=== PATIENT | male | born 1980 | race Caucasian/White ===

== ENCOUNTER 2017-05-27 17:15 | Emergency (ER) | payer BC, OTHER ==
[~2017-05-27 17:15] MED LIST: ASPI325T PO; DILTCD120 PO; ROSU20 PO
[2017-05-27 17:36] VITALS: BP 152/93; PULSE 83; RESP 18; TEMP 98.1; O2SAT 98
--- NOTE | 2017-05-27 18:43 | RADRPT ---
EXAM DATE/TIME: 05/27/2017 18:23 [place] COMPARISON: No previous studies available for comparison. INDICATIONS : Chest pain. MEDICAL HISTORY : None. SURGICAL HISTORY : None. ENCOUNTER: Initial ACUITY: 2 days PAIN SCORE: 3/10 LOCATION: Bilateral chest FINDINGS: PA and lateral views of the chest demonstrate the lungs to be symmetrically aerated without evidence of mass, infiltrate or effusion. The cardiomediastinal contours are unremarkable. Osseous structure s are intact. CONCLUSION: No acute disease. Surya Guajardo MD on May 27, 2017 at 18:40 Board Certified Radiologist. This report was verified electronically.
[2017-05-27 19:23] LABS: AUTOMATED NEUTROPHIL # 4.1 TH/MM3 (1.8-7.7); BASOPHIL % 0.5 % (0.0-2.0); EOSINOPHIL # 0.1 TH/MM3 (0-0.4); EOSINOPHIL % 1.6 % (0.0-4.0); HEMATOCRIT 45.5 % (39.0-51.0); HEMOGLOBIN 15.6 GM/DL (13.0-17.0); LYMPH % 24.4 % (9.0-44.0); LYMPHOCYTE # 1.6 TH/MM3 (1.0-4.8); MEAN CELL VOLUME 85.5 FL (80.0-100.0); MEAN CORPUSCULAR HEMOGLOBIN 29.3 PG (27.0-34.0); MEAN CORPUSCULAR HGB CONC 34.2 % (32.0-36.0); MEAN PLATELET VOLUME 8.6 FL (7.0-11.0); MONO % 10.5 % (0.0-8.0); MONOCYTE # 0.7 TH/MM3 (0-0.9); PLATELET COUNT 237 TH/MM3 (150-450); RED BLOOD COUNT 5.33 MIL/MM3 (4.50-5.90); RED CELL DISTRIBUTION WIDTH 12.6 % (11.6-17.2); WHITE BLOOD COUNT 6.4 TH/MM3 (4.0-11.0)
[2017-05-27 19:34] LABS: ALBUMIN 3.7 GM/DL (3.4-5.0); AST (GOT) 22 U/L (15-37); BICARBONATE 23.1 MEQ/L (21.0-32.0); BLOOD UREA NITROGEN 17 MG/DL (7-18); CALCIUM 9.1 MG/DL (8.5-10.1); CHLORIDE 106 MEQ/L (98-107); CREATININE 0.82 MG/DL (0.60-1.30); GLOMERULAR FILTRATION RATE 106 ML/MIN (>89); GLUCOSE,RANDOM 99 MG/DL (74-106); SODIUM (NA) 138 MEQ/L (136-145)
[2017-05-27 19:35] LABS: ALT (GPT) 44 U/L (12-78)
[2017-05-27 19:38] LABS: ALKALINE PHOSPHATASE 69 U/L (45-117); TOTAL BILIRUBIN ADULT 0.3 MG/DL (0.2-1.0); TOTAL PROTEIN 6.9 GM/DL (6.4-8.2); TROPONIN I LESS THAN 0.02 NG/ML (0.02-0.05)
[2017-05-27 21:03] VITALS: BP 137/82; PULSE 60; RESP 18; O2SAT 99
[2017-05-27] MEDS ORDERED: ASPI1TAB57 PO (21:15)
[2017-05-27] MEDS ORDERED: LISI10TA3 PO (21:15)
[2017-05-27] MEDS ORDERED: ATOR40TA16 PO (21:15)
--- NOTE | 2017-05-27 21:16 | PD ---
HPI Chief Complaint: Chest Pain Time Seen by Provider: 20:57 Travel History International Travel<30 days: No Contact w/Intl Traveler<30days: No Traveled to known affect area: No History of Present Illness HPI Is a 36-year-old man who presents to the emergency department complaining of chest discomfort. He has had previous episodes of chest discomfort. He was admitted to the hospital with the minimally elevated troponin on April 18, 2015, had a heart cath on that showed moderate nonobstructive disease and possibly some vasospasm. He is continue to follow with Dr. Harris. He had a stress test about a year ago. He has not really had symptoms since then. He states he works nights. He started developing the chest pain late afternoon. It was better last night when he went to bed. He woke up this morning it came back. He states that it is better when he rests but does not really notice it is worse with exertion. He has not had similar episodes since he had a stress test. He takes medicine for his blood pressure and cholesterol. Otherwise has been feeling well. A little bit of persistent dry cough that he attributes to his lisinopril. No other recent illness or injury. Physically active at his job and states he was able to do his job last night without any limitations from the discomfort. History Past Medical History Narrative Medical Hypertension Hyperlipidemia Social History Alcohol Use: Yes (socially) Tobacco Use: No Allergies-Medications (Allergen,Severity, Reaction): Coded Allergies: amoxicillin (Unverified Allergy, Unknown, 10/23/16) Reported Meds & Prescriptions Reported Meds & Active Scripts Active Reported Lisinopril 10 Mg Tab 10 Mg PO DAILY Aspirin 81 (Aspirin) 81 Mg Tabdr 81 Mg PO DAILY Atorvastatin (Atorvastatin Calcium) 40 Mg Tab 40 Mg PO HS Review of Systems Except as stated in HPI: all other systems reviewed are Neg Physical Exam Narrative GENERAL: Well-appearing 36-year-old man, no acute distress. SKIN: Focused skin assessment warm/dry. HEAD: Atraumatic. Normocephalic. EYES: Pupils equal and round. No scleral icterus. No injection or drainage. ENT: No nasal bleeding or discharge. Mucous membranes pink and moist. NECK: Trachea midline. No JVD. CARDIOVASCULAR: Regular rate and rhythm. No murmur appreciated. RESPIRATORY: No accessory muscle use. Clear to auscultation. Breath sounds equal bilaterally. GASTROINTESTINAL: Abdomen soft, non-tender, nondistended. Hepatic and splenic margins not palpable. MUSCULOSKELETAL: No obvious deformities. No edema. NEUROLOGICAL: Awake and alert. No obvious cranial nerve deficits. Motor grossly within normal limits. Normal speech. PSYCHIATRIC: Appropriate mood and affect; insight and judgment normal. Data Data Last Documented VS Vital Signs Date Time Temp Pulse Resp B/P (MAP) Pulse Ox O2 Delivery O2 Flow Rate FiO2 05/27/17 21:03 60 18 137/82 (100) 99 05/27/17 17:36 98.1 Orders Orders Electrocardiogram (05/27/17 18:03) Ckmb (Isoenzyme) Profile (05/27/17 18:03) Complete Blood Count With Diff (05/27/17 18:03) Comprehensive Metabolic Panel (05/27/17 18:) Prothrombin Time / Inr (Pt) (05/27/17 18:03) Act Partial Throm Time (Ptt) (05/27/17 18:03) Troponin I (05/27/17 18:03) Lipase (05/27/17 18:03) Chest, Pa & Lat (05/27/17 18:03) Troponin I (05/27/17 20:04) Labs Laboratory Tests Test 05/27/17 18:19 White Blood Count 6.4 TH/MM3 Red Blood Count 5.33 MIL/MM3 Hemoglobin 15.6 GM/DL Hematocrit 45.5 % Mean Corpuscular Volume 85.5 FL Mean Corpuscular Hemoglobin 29.3 PG Mean Corpuscular Hemoglobin Concent 34.2 % Red Cell Distribution Width 12.6 % Platelet Count 237 TH/MM3 Mean Platelet Volume 8.6 FL Neutrophils (%) (Auto) 63.0 % Lymphocytes (%) (Auto) 24.4 % Monocytes (%) (Auto) 10.5 % Eosinophils (%) (Auto) 1.6 % Basophils (%) (Auto) 0.5 % Neutrophils # (Auto) 4.1 TH/MM3 Lymphocytes # (Auto) 1.6 TH/MM3 Monocytes # (Auto) 0.7 TH/MM3 Eosinophils # (Auto) 0.1 TH/MM3 Basophils # (Auto) 0.0 TH/MM3 CBC Comment DIFF FINAL Differential Comment Prothrombin Time 10.0 SEC Prothromb Time International Ratio 1.0 RATIO Activated Partial Thromboplast Time 26.6 SEC Blood Urea Nitrogen 17 MG/DL Creatinine 0.82 MG/DL Random Glucose 99 MG/DL Total Protein 6.9 GM/DL Albumin 3.7 GM/DL Calcium Level 9.1 MG/DL Alkaline Phosphatase 69 U/L Aspartate Amino Transf (AST/SGOT) 22 U/L Alanine Aminotransferase (ALT/SGPT) 44 U/L Total Bilirubin 0.3 MG/DL Sodium Level 138 MEQ/L Potassium Level 4.0 MEQ/L Chloride Level 106 MEQ/L Carbon Dioxide Level 23.1 MEQ/L Anion Gap 9 MEQ/L Estimat Glomerular Filtration Rate 106 ML/MIN Total Creatine Kinase 74 U/L Troponin I LESS THAN 0.02 NG/ML Lipase 133 U/L MDM Medical Decision Making Medical Screen Exam Complete: Yes Emergency Medical Condition: Yes Interpretation(s) My review of EKG: Sinus bradycardia at a rate of 58, normal axis, normal intervals, no ischemia. Differential Diagnosis Chest wall pain, atypical chest pain, ACS, vasospasm, other Narrative Course Medical decision making Is a 36-year-old male presents to the emergency department complaining of chest pain. Previous workup for chest pain showed moderate nonobstructive disease. Had a stress test but a year ago was normal. History is only slightly suggestive of chest pain. I spoke to the patient, initial workup is negative. Had extensive discussion with the patient and his family member who is here with him. Workup is negative. Symptoms been ongoing for hours. 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 Offered discharge for outpatient follow-up. Family member was concerned because she felt like the symptoms are worse when he rested. I think this is a very reasonable point to consider. Further discussion we discussed observation and chest pain center for serial cardiac enzymes and to see cardiology. I left the family long for them to discuss for a little bit. Patient after discussion and consideration with his family would like to be discharged for outpatient follow-up. Discussed in detail symptoms return for including worsening chest pain, symptoms are worse with exertion, shortness of breath or dyspnea on exertion. Patient agrees to return, is going to call Dr. Harris tomorrow morning for a follow-up appointment. Diagnosis Primary Impression: Chest pain Additional Instructions: Continue current medications. Follow with her gis consultant tomorrow as discussed. Return to the emergency department for any worsening chest pain, any symptoms are worse with exertion, any shortness of breath or getting winded easily, or any other new or worsening symptoms. Med/Other Pt SpecificInfo: No Change to Meds Disposition: 01 DISCHARGE HOME Condition: Stable Keo Ott MD May 27, 2017 21:16
--- NOTE | 2017-05-28 15:52 | EKG ---
Date Performed: 05/27/2017 Time Performed: 18:12:16 PTAGE: 36 years EKG: SINUS BRADYCARDIA BORDERLINE ECG PREVIOUS TRACING : 04/16/2015 14.59 No significant change from previous tracing noted. DOCTOR: Bharat Mendez Interpretating Date/Time 05/28/2017 15:50:32
== END 2017-05-27 21:49 | disposition home or self-care (01) ==
LOC: NED 17:15 → NEPD 21:49
DX: R07.89 Other chest pain (principal); R00.1 Bradycardia, unspecified; I10 Essential (primary) hypertension; E78.5 Hyperlipidemia, unspecified; Z79.82 Long term (current) use of aspirin; Z79.899 Other long term (current) drug therapy; Z88.0 Allergy status to penicillin
CPT/HCPCS: 71046; 80053; 82550; 83690; 84484; 85025; 85610; 85730; 93005